=== PATIENT | female | born 1950 | race Caucasian/White ===

== ENCOUNTER 2024-02-29 06:30 | Day surgery (SDC) | payer MEDICARE, BC ==
[2024-02-29] MEDS ORDERED: fentaNYL 100 MCG/2 ML SDV ONE (07:10)
[2024-02-29] MEDS ORDERED: Midazolam 1 MG/ML 2 ML SDV ONE (07:10)
[2024-02-29] MEDS ORDERED: Propofol 200 MG/20 ML SDV ONE ×3 (07:10)
[2024-02-29] MEDS ORDERED: ceFAZolin 2 GM Vial ONE (07:24)
[2024-02-29] MEDS ORDERED: fentaNYL 100 MCG/2 ML SDV IVPUSH PRN (07:37)
[2024-02-29] MEDS ORDERED: HYDROmorphone 0.5 MG/0.5 ML Syringe IVPUSH PRN (07:37)
[2024-02-29] MEDS ORDERED: Ondansetron 4 MG/2 ML SDV IVPUSH PRN (07:37)
[2024-02-29] MEDS ORDERED: ePHEDrine 50 MG/ML SDV ONE (07:46)
[2024-02-29] MEDS ORDERED: Dexamethasone 4 MG/ML 5 ML MDV ONE (08:13)
[2024-02-29] MEDS ORDERED: Ropivacaine 0.5% 5 MG/ML 30 ML SDV ONE (08:13)
[2024-02-29] MEDS: Morphine 8 MG, EPINEPHrine 0.3 MG, Cefuroxime 750 MG, Ketorolac 30 MG, Sodium Chloride ... PRN (08:14)
[2024-02-29] MEDS: Vancomycin 1 GM SDV ONE (08:19)
[2024-02-29] MEDS: Tranexamic Acid 1,000 MG/10 ML Vial ONE (08:19)
[2024-02-29] MEDS ORDERED: Lactated Ringers 1,000 ML IV ONE (08:30)
[2024-02-29] MEDS: Bupivacaine 0.25% 10 ML SDV ONE (08:38)
[2024-02-29] MEDS: Triamcinolone Acetonide 40 MG/ML 1 ML SDV ONE (08:38)
[2024-02-29] MEDS: Acetaminophen/HYDROcodone 325-5 MG Tab PO PRN (12:15)
[2024-02-29] MEDS: Lactated Ringers 1,000 ML IV SCH (16:02)
== END 2024-02-29 15:55 | disposition home or self-care (01) ==
LOC: JD.SDS 06:30
PROVIDERS: ATTEND Orthopaedic Surgery
DX: M17.0 Bilateral primary osteoarthritis of knee (principal); I10 Essential (primary) hypertension; E78.5 Hyperlipidemia, unspecified; E03.9 Hypothyroidism, unspecified; Z88.5 Allergy status to narcotic agent; Z88.8 Allergy status to other drugs, medicaments and biological substances; Z88.2 Allergy status to sulfonamides; Z79.899 Other long term (current) drug therapy; Z79.890 Hormone replacement therapy
CPT/HCPCS: 0055T; 20610; 27447; 73560; 97110; 97116; 97161; A9270; C1713; C1776; J0171; J0665; J0690; J0697; J1100; J1885; J2250; J2270; J2704; J2795; J3010; J3301; J3370; J7120; 01400; 64447; 99100; J3490